=== PATIENT | male | born 1965 | race Caucasian/White ===

== ENCOUNTER 2018-02-16 17:52 | Emergency (ER) | payer OTHER ==
[2018-02-16 18:21] LABS: ABSOLUTE LYMPHOCYTES (AUTO) 1.9 10^3/uL (0.5-4.7); ABSOLUTE MONOCYTES (AUTO) 1.4 10^3/uL (0.1-1.4); ABSOLUTE NEUT (AUTO) 8.1 10^3/uL (1.7-8.2); BASOPHILS % (AUTO) 0.4 % (0-2); EOSINOPHILS % (AUTO) 0.4 % (0-6); HEMATOCRIT 42.5 % (37.9-51.0); HEMOGLOBIN 14.5 g/dL (13.5-17.0); LYMPHOCYTES % (AUTO) 16.4 % (13-45); MEAN CORPUSCULAR HEMOGLOBIN 29.8 pg (27.0-33.4); MEAN CORPUSCULAR VOLUME 88 fl (80-97); MONOCYTES % (AUTO) 11.9 % (3-13); PLATELET COUNT 224 10^3/uL (150-450); RED BLOOD COUNT 4.85 10^6/uL (4.35-5.55); RED CELL DISTRIBUTION WIDTH 13.5 % (11.5-14.0); SEGMENTED NEUTROPHILS % (AUTO) 70.9 % (42-78); TOTAL CELLS COUNTED % (AUTO) 100 %; WHITE BLOOD COUNT 11.4 10^3/uL (4.0-10.5)
[2018-02-16 18:33] LABS: ALANINE AMINOTRANSFERASE 38 U/L (21-72); ALBUMIN 4.4 g/dL (3.5-5.0); ALKALINE PHOSPHATASE 84 U/L (38-126); ANION GAP 13 (5-19); ASPARTATE AMINO TRANSFERASE 26 U/L (17-59); BILIRUBIN,DIRECT 0.2 mg/dL (0.0-0.4); BILIRUBIN,TOTAL 0.6 mg/dL (0.2-1.3); BLOOD UREA NITROGEN 14 mg/dL (7-20); CALCIUM 8.9 mg/dL (8.4-10.2); CARBON DIOXIDE 24 mmol/L (22-30); CHLORIDE 102 mmol/L (98-107); CREATINE KINASE 92 U/L (55-170); GLUCOSE 122 mg/dL (75-110); POTASSIUM 3.8 mmol/L (3.6-5.0); SODIUM 138.8 mmol/L (137-145); TOTAL PROTEIN 7.1 g/dL (6.3-8.2)
[2018-02-16 18:44] LABS: CREATINE KINASE MB 0.52 ng/mL (<4.55)
[2018-02-16 18:46] LABS: TROPONIN I < 0.012 ng/mL
[2018-02-16 19:01] LABS: APPEARANCE,URINE CLEAR; BILIRUBIN,URINE NEGATIVE (NEGATIVE); COLOR,URINE YELLOW; GLUCOSE, URINE NEGATIVE (NEGATIVE); KETONES,URINE NEGATIVE (NEGATIVE); LEUKOCYTE ESTERASE,URINE NEGATIVE (NEGATIVE); NITRITE,URINE NEGATIVE (NEGATIVE); PROTEIN,URINE NEGATIVE (NEGATIVE); URINE SPECIFIC GRAVITY 1.015; UROBILINOGEN,URINE NEGATIVE mg/dL (<2.0)
[2018-02-16] MEDS ORDERED: NORMAL SALINE 1000 ML 1,000 ML IV ONE (19:03)
--- NOTE | 2018-02-16 19:27 | ER Document Report ---
ED General - General Mode of Arrival: Ambulatory Information source: Patient <MECHELLE TAYLOR - Last Filed: 02/16/18 19:47> <DERRELLBEVERLEY Saucedo - Last Filed: 02/16/18 21:58> - General Chief Complaint: Near Syncope Stated Complaint: SYNCOPE Time Seen by Provider: 02/16/18 18:31 Notes: Patient is a 52-year-old male presenting to the emergency department accompanied with family complaining of a syncopal episode onset today. Patient states he was outside talking with neighbors about a fallen tree when the conversation became stressful due to one of the neighbors becoming disagreeable. He states he began to feel light headed and fell to his knees for several seconds. After this, he reports he stood up, walked to his chair and sat down then proceeded to "go out" for approximately 1 minute. He states family and friends witnessed him become unconscious, diaphoretic, watch his eyes roll to the back of his head and his mouth pull to one side for approximately 1 minute. Patient states when he woke up , he felt like he had just taken a nap but quickly realized what happened. Patient mentions having decreased urine output throughout the day today. Patient denies any recent falls. Patient states he was tearing down a fence yesterday which was a strenuous activity for him due to becoming more sedentary the last couple of months. Patient also reports not receiving much sleep the last 3-4 days. EMS administered 300 mL of normal saline prior to arrival to emergency department. (MECHELLE TAYLOR) - Related Data Allergies/Adverse Reactions: Sulfa (Sulfonamide Antibiotics) Allergy (Verified 02/16/18 18:16) Past Medical History - General Information source: Patient - Social History Smoking Status: Former Smoker Drug Abuse: None Family History: Reviewed & Not Pertinent Patient has suicidal ideation: No Patient has homicidal ideation: No GI Medical History: Reports: Hx Gastroesophageal Reflux Disease <BRANDONMINNIEDONTRELL - Last Filed: 02/16/18 19:47> Review of Systems - Review of Systems Constitutional: See HPI, Diaphoresis EENT: No symptoms reported Cardiovascular: See HPI, Syncope, Lightheaded Respiratory: No symptoms reported Gastrointestinal: No symptoms reported Genitourinary: No symptoms reported Male Genitourinary: No symptoms reported Musculoskeletal: No symptoms reported Skin: No symptoms reported Hematologic/Lymphatic: No symptoms reported Neurological/Psychological: No symptoms reported -: Yes All other systems reviewed and negative <MECHELLE TAYLOR - Last Filed: 02/16/18 19:47> Physical Exam - General General appearance: Appears well, Alert In distress: None - HEENT Head: Normocephalic, Atraumatic Eyes: Normal Conjunctiva: Normal Extraocular movements intact: Yes Pupils: PERRL Neck: Normal - Respiratory Respiratory status: No respiratory distress Chest status: Nontender Breath sounds: Normal Chest palpation: Normal - Cardiovascular Rhythm: Regular Heart sounds: Normal auscultation Murmur: No Friction rub: No Gallop: None auscultated - Abdominal Inspection: Normal Distension: No distension Bowel sounds: Normal Tenderness: Nontender Organomegaly: No organomegaly - Back Back: Normal - Extremities General upper extremity: Normal ROM - Neurological Neuro grossly intact: Yes Cognition: Normal Orientation: AAOx4 Yasmin Coma Scale Eye Opening: Spontaneous [place] Coma Scale Verbal: Oriented Yasmin Coma Scale Motor: Obeys Commands [place] Coma Scale Total: 15 Speech: Normal - Psychological Associated symptoms: Normal affect, Normal mood - Skin Skin Temperature: Warm Skin Moisture: Dry Skin Color: Normal <MECHELLE TAYLOR - Last Filed: 02/16/18 19:47> - Vital signs Vitals: BP 133/97 H 02/16/18 18:08 Course - Laboratory Result Diagrams: 02/16/18 17:30 02/16/18 17:30 <MECHELLE TAYLOR - Last Filed: 02/16/18 19:47> - Laboratory Result Diagrams: 02/16/18 17:30 02/16/18 17:30 - EKG Interpretation by Me EKG shows normal: Sinus rhythm, Burns, Intervals, QRS Complexes, ST-T Waves Rate: Normal - 74 Rhythm: NSR Burns/QRS: RBBB When compared to previous EKG there are: Previous EKG unavailable - Patient states he has a known right bundle branch block for many years. <BEVERELY DOVE - Last Filed: 02/16/18 21:58> - Vital Signs Vital signs: Temp Pulse Resp BP Pulse Ox 17 110/56 L 97 02/16/18 21:00 02/16/18 21:00 02/16/18 21:00 - Laboratory Laboratory results interpreted by me: 02/16/18 02/16/18 17:30 17:30 WBC 11.4 H Glucose 122 H Discharge <MECHELLE TAYLOR - Last Filed: 02/16/18 19:47> <BEVERLEY DOVE - Last Filed: 02/16/18 21:58> - Discharge Clinical Impression: Syncope and collapse Condition: Stable Disposition: HOME, SELF-CARE Additional Instructions: Syncopal Episode Syncope (fainting or near-fainting) can occur from many different health problems. Or it can be a simple fainting spell requiring no treatment. It is safe for you to go home, but further evaluation will likely be necessary. Your work-up may include tests for internal bleeding, heart disease, medication problems, or near-strokes. Tests are not always required, however, depending on the nature of your problem. The warning signs of an impending faint include: dizziness, lightheadedness , nausea, hot flashes, tingling, and weakness. If this happens, lay down and put your feet up, then wait until all of these symptoms have passed before standing up again. If these episodes become recurrent, or if you develop chest pain, heart palpitations, mental confusion, blurred vision, or headache, then you should call the physician, or go to the emergency room. Drink plenty of fluids today. Get plenty of rest. Try taking melatonin and/or Benadryl to help sleep at night if needed for the next few days. Follow-up with your doctor if not improving. RETURN TO THE EMERGENCY ROOM IF ANY NEW OR WORSENING SYMPTOMS. Referrals: SURESH ANGELES MD [Primary Care Provider] - Follow up as needed Scribe Attestation: 02/16/18 19:44 I personally performed the services described in the documentation, reviewed and edited the documentation which was dictated to the scribe in my presence, and it accurately records my words and actions. (BEVERLEY DOVE) Scribe Documentation - Scribe Written by Edinson:: Edinson Villanueva, 02/16/2018 19:29 acting as scribe for :: Derrell <MECHELLE TAYLOR - Last Filed: 02/16/18 19:47>
--- NOTE | 2018-02-16 19:47 | EKG REPORT ---
SEVERITY:- ABNORMAL ECG - SINUS RHYTHM RIGHT BUNDLE BRANCH BLOCK : Confirmed by: Cat Loya MD 16-Feb-2018 19:46:21
[2018-02-16 22:09] VITALS: BP 116/73
== END 2018-02-16 22:09 | disposition home or self-care (01) ==
LOC: ER 17:52
DX: R55 Syncope and collapse (principal); W19.XXXA Unspecified fall, initial encounter; Z87.891 Personal history of nicotine dependence
CPT/HCPCS: 93005; 99284; 96360; 36415; 82553; 82550; 83735; 85025; 80053; 81001; 84484; 93010; J7030